=== PATIENT | male | born 1940 | race Caucasian/White ===

== ENCOUNTER 2018-02-27 11:36 | Emergency (ER) | payer MEDICARE, OTHER, SELFPAY ==
[2018-02-27] VITALS (8 sets, daily range): BP systolic 134–158; BP diastolic 70–83; PULSE 65–79; RESP 11–17; TEMP 36.4; O2SAT 92–100; BMI 23.0
--- NOTE | 2018-02-27 11:46 | DI.RAD.S_ITS ---
PROCEDURE: XR KNEE LT 1TO2V INDICATIONS: fall knee pain swelling TECHNIQUE: 2 views of the knee were acquired. COMPARISON: [facility], CR, XR TIBIA FIBULA LT 2V, 02/27/2018, 11:31. [facility], CR, XR FEMUR 2VW LT, 01/15/2017, 13:54. FINDINGS: Bones: There is a minimally displaced proximal tibial fracture. In addition, there is a very minimal angulated appearance of the proximal tibia seen on lateral view with areas of cortical irregularity and lucency noted along the metaphyseal/diaphyseal junction. In addition, there is an ill-defined area of lucency along the tibial spine and lateral tibial plateau. No suspicious bony lesions. Partially visualized distal femoral fixation tanvir is present. Hardware appears intact. Soft tissues: Moderate joint effusion. No suspicious soft tissue calcifications. IMPRESSION: 1. Minimally displaced proximal fibular fracture. 2. Ill-defined areas of nondisplaced lucency within the proximal tibia as above including the lateral tibial plateau and spine likely accounts receivable representative of intra-articular fractures. CT is recommended for additional evaluation. Dictated by: Gina Stockton M.D. on 02/27/2018 at 12:24 Approved by: Gina Stockton M.D. on 02/27/2018 at 12:28
--- NOTE | 2018-02-27 11:46 | DI.RAD.S_ITS ---
PROCEDURE: XR TIBIA FIBULA RT 2V INDICATIONS: fall pain TECHNIQUE: 2 views of the tibia and fibula were acquired. COMPARISON: [facility], CR, XR KNEE LT 1TO2V, 02/27/2018, 11:31. [facility], CR, XR FEMUR 2VW LT, 01/15/2017, 13:54. FINDINGS: Bones: Partially visualized proximal fibular fracture as well is lucency with within the proximal tibia. Soft tissues: No suspicious soft tissue calcifications or masses. IMPRESSION: Partially visualized proximal fibular and tibial fractures as above. Please see knee x-ray report of 02/27/18 for further details. Dictated by: Gina Stockton M.D. on 02/27/2018 at 12:31 Approved by: Gina Stockton M.D. on 02/27/2018 at 12:31
--- NOTE | 2018-02-27 11:46 | DI.RAD.S_ITS ---
PROCEDURE: XR PELVIS 1-2V INDICATIONS: fall left leg pain TECHNIQUE: 1 view(s) of the pelvis acquired. COMPARISON: [facility], TREVOR, XR FEMUR 2VW LT, 01/15/2017, 13:54. [facility], RTEVOR, XR PELVIS W LATERAL HIP LT, 01/15/2017, 13:54. FINDINGS: Bones: Right hip arthroplasty is present. Partially visualized left femoral fixation rods are noted. There no visualized osseous or hardware fractures. Soft tissues: Visualized bowel gas pattern is normal. No suspicious soft tissue calcifications. IMPRESSION: Right hip arthroplasty and left femoral fixation. No visualized acute fracture or dislocation. However, if clinical concern and/or pain persist, short interval imaging followup in 7-10 days is recommended, as occult injury cannot be definitively excluded. Dictated by: Gina Stockton M.D. on 02/27/2018 at 12:28 Approved by: Gina Stockton M.D. on 02/27/2018 at 12:30
--- NOTE | 2018-02-27 11:47 | DI.RAD.S_ITS ---
PROCEDURE: XR CHEST 1V INDICATIONS: fall backwards TECHNIQUE: One view of the chest was acquired. COMPARISON: [facility], , CHEST 1 VIEW, 07/08/2015, 13:27. FINDINGS: Surgical changes and devices: Pacemaker and sternal wires are noted. Lungs and pleura: No pleural effusions or pneumothorax. Lungs are clear. Mediastinum: Heart size is normal. Aorta is calcified and ectatic. Bones and chest wall: No suspicious bony lesions. Overlying soft tissues appear unremarkable. IMPRESSION: No acute pulmonary process. Dictated by: Gina Stockton M.D. on 02/27/2018 at 12:22 Approved by: Gina Stockton M.D. on 02/27/2018 at 12:23
--- NOTE | 2018-02-27 12:00 | ED.LOWEXIN ---
HPI - Extremity Injury (Lower) General Chief Complaint: Extremity Injury, Lower Stated Complaint: Left leg injury Time Seen by Provider: 02/27/18 11:45 Source: patient and EMS Mode of arrival: EMS Limitations: no limitations History of Present Illness HPI Narrative: Patient is a 77-year-old male who presents with left leg injury. He fell backwards all 1-2 feet in a and landed on his left side. There was no head injury or loss consciousness. EMS in the field thought that his left lower leg with angulated and so it was attempted to reduce in the field. He does have significant left knee swelling. He denies any back pain or hip pain. He is on Coumadin for his heart. MD complaint: leg injury Related Data Home Medications Medication Instructions Recorded Confirmed allopurinol 300 mg PO DAILY 02/27/18 02/27/18 aspirin [Aspirin Low Dose] 81 mg PO DAILY 02/27/18 02/27/18 buspirone 15 mg PO BID 02/27/18 02/27/18 carvedilol 6.25 mg PO BID 02/27/18 02/27/18 fluoxetine 40 mg PO DAILY 02/27/18 02/27/18 furosemide 20 mg PO DAILY 02/27/18 02/27/18 omeprazole 20 mg PO DAILY 02/27/18 02/27/18 tamsulosin 0.4 mg PO DAILY 02/27/18 02/27/18 tizanidine 2 mg PO DAILY 02/27/18 02/27/18 trazodone 50 mg PO BEDTIME 02/27/18 02/27/18 warfarin 2.5 mg PO DAILY 02/27/18 02/27/18 Allergies Allergy/AdvReac Type Severity Reaction Status Date / Time No Known Drug Allergies Allergy Verified 02/27/18 14:10 Review of Systems Review of Systems All systems reviewed & are unremarkable except as noted in HPI and below Constitutional Denies chills, Denies fever(s), Denies lethargy and Denies weakness Cardiovascular Denies chest pain, Denies irregular heart rhythm, Denies lightheadedness, Denies palpitations, Denies dyspnea, Denies dyspnea on exertion and Denies orthopnea Respiratory Denies cough, Denies dyspnea, Denies dyspnea on exertion and Denies wheezing Gastrointestinal Gastrointestinal: Denies abdominal pain, Denies change in bowel habits, Denies diarrhea, Denies nausea and Denies vomiting Musculoskeletal Reports as per HPI Integumentary/Breasts Denies pruritus, Denies erythema, Denies rash and Denies wounds Neurologic Denies weakness Endocrine Denies palpitations Allergic/Immunologic Denies wheezing PFSH Medical History Atrial fibrillation (Acute) CHF (congestive heart failure) (Acute) Coronary artery disease (Acute) Surgical History H/O aortic valve replacement (Acute) S/P ICD (internal cardiac defibrillator) procedure (Acute) Status post cholecystectomy (Acute) Social History Smoking Status: Former smoker Exam Initial Vital Signs Initial Vital Signs: Vital Signs Temperature 97.6 F 02/27/18 11:46 Pulse Rate 79 02/27/18 11:46 Respiratory Rate 15 02/27/18 11:46 Blood Pressure 158/75 H 02/27/18 11:46 Pulse Oximetry 96 02/27/18 11:46 GENERAL: Alert well-appearing elderly male in no acute distress alert and oriented times HEENT: Head atraumatic,EOMI, pupils reactive, face symmetric Neck: No vertebral tenderness no step-offs full range of motion CARDIOVASCULAR: Regular rate and rhythm without murmurs, rubs or gallops. RESPIRATORY: Breath sounds equal bilaterally, no wheezes rales or rhonchi. ABDOMEN: Soft, nontender. Normoactive bowel sounds all 4 quadrants. No guarding or rebound. BACK: No tenderness no step-offs EXTREMITIES: Normal range of motion, no clubbing or edema. Neurovascularly intact -left knee swelling noted no obvious angulation distal pedal pulse is strong. He is able to move his toes. Pelvis is stable NEUROLOGICAL: Alert and oriented x4.Normal gait and speech. Cranial nerves II through XII grossly intact. Financial Investment Manager strength equal bilaterally SKIN: Warm, dry, no laceration, no petechiae, no rashes or lesions. Course Orders Ordered: ED Orders 02/27/18 11:46 XR knee LT 1to2V Stat XR pelvis 1-2V Stat XR tibia fibula LT 2V Stat 02/27/18 11:47 XR chest 1V Stat 02/27/18 12:15 Basic Metabolic Panel Stat Complete Blood Count AUTO DIFF Stat Prothrombin Time INR Stat 02/27/18 14:31 CT LE LT wo con Stat 02/27/18 16:27 EKG-12 Lead Stat 02/27/18 16:30 CT head/brain wo con Stat Discontinued Medications Hydromorphone HCl (Dilaudid) 0.5 mg IV NOW ONE Stop: 02/27/18 12:38 Last Admin: 02/27/18 12:45 Dose: 0.5 mg Hydromorphone HCl (Dilaudid) 0.5 mg IV NOW ONE Stop: 02/27/18 13:06 Last Admin: 02/27/18 13:06 Dose: 0.5 mg Hydromorphone HCl (Dilaudid) 0.5 mg IV NOW ONE Stop: 02/27/18 13:46 Last Admin: 02/27/18 13:53 Dose: 0.5 mg Hydromorphone HCl (Dilaudid) 0.5 mg IV NOW ONE Stop: 02/27/18 15:02 Last Admin: 02/27/18 15:02 Dose: 0.5 mg Ketamine HCl (Ketalar) 10 mg IV NOW ONE Stop: 02/27/18 17:37 Last Admin: 02/27/18 18:00 Dose: 10 mg Ketamine HCl (Ketalar) 15 mg IV NOW ONE Stop: 02/27/18 18:35 Lorazepam (Ativan) 0.5 mg IV NOW ONE Stop: 02/27/18 13:46 Last Admin: 02/27/18 13:52 Dose: 0.5 mg Morphine Sulfate (Morphine) 2 mg IV NOW ONE Stop: 02/27/18 16:10 Last Admin: 02/27/18 16:11 Dose: 2 mg Vital Signs - 8 hr 02/27/18 11:46 02/27/18 12:48 02/27/18 13:04 Temperature 97.6 F Pulse Rate 79 65 Respiratory Rate 15 16 Blood Pressure 158/75 H Blood Pressure [Left Arm] 147/79 H Pulse Oximetry 96 97 02/27/18 13:32 02/27/18 14:35 02/27/18 15:36 Temperature Pulse Rate 70 70 74 Respiratory Rate 11 L Blood Pressure Blood Pressure [Left Arm] 146/83 H 135/70 134/77 Pulse Oximetry 92 94 96 02/27/18 16:06 02/27/18 18:15 Temperature Pulse Rate 70 76 Respiratory Rate 17 Blood Pressure Blood Pressure [Left Arm] 148/80 H 141/73 H Pulse Oximetry 100 97 MDM - Extremity Injury (Lower) Lab Data Attestation: I reviewed the patient's lab results. Result diagrams: 02/27/18 12:15 02/27/18 12:15 Lab Results 02/27/18 02/27/18 02/27/18 Range/Units 12:15 12:15 12:15 WBC 6.4 (4.5-11.0) X10^3/uL RBC 4.90 (4.5-5.9) X10^6/uL Hgb 15.2 (13.5-17.5) g/dL Hct 45.9 (41-53) % MCV 93.6 (80-100) fL MCH 31.0 (26-34) PG MCHC 33.1 (30-36) % RDW 17.1 H (11.6-14.8) % Plt Count 100 L (150-400) X10^3/uL Neut % (Auto) 80.5 H (50-75) % Lymph % (Auto) 11.3 L (25-40) % [place] % (Auto) 5.8 (3-14) % Eos % (Auto) 1.8 L (2-4) % Baso % (Auto) 0.6 (0-2) % Neut # (Auto) 5100 (6883-7678) /uL PT 35.1 H (10.1-12.7) SECONDS INR 3.2 H (0.9-1.3) Sodium 143 (137-145) mmol/L Potassium 4.5 (3.4-5.1) mmol/L Chloride 106 (98-107) mmol/L Carbon Dioxide 31 (22-32) mmol/L BUN 41 H (9-20) mg/dL Creatinine 1.80 H (0.66-1.25) mg/dL Estimated GFR 37.0 L (>60) mL/min BUN/Creatinine Ratio 22.8 H (6-22) Glucose 107 (80-110) mg/dL Calcium 8.9 (8.4-10.2) mg/dL Imaging Data pelvis: Radiologist's impression: PROCEDURE: XR PELVIS 1-2V INDICATIONS: fall left leg pain TECHNIQUE: 1 view(s) of the pelvis acquired. COMPARISON: [facility], CR, XR FEMUR 2VW LT, 01/15/2017, 13:54. [facility], CR, XR PELVIS W LATERAL HIP LT, 01/15/2017, 13:54. FINDINGS: Bones: Right hip arthroplasty is present. Partially visualized left femoral fixation rods are noted. There no visualized osseous or hardware fractures. Soft tissues: Visualized bowel gas pattern is normal. No suspicious soft tissue calcifications. IMPRESSION: Right hip arthroplasty and left femoral fixation. No visualized acute fracture or dislocation. However, if clinical concern and/or pain persist, short interval imaging followup in 7-10 days is recommended, as occult injury cannot be definitively excluded. Dictated by: Gina Stockton M.D. on 02/27/2018 at 12:28 Left knee XR: Radiologist's impression: PROCEDURE: XR KNEE LT 1TO2V INDICATIONS: fall knee pain swelling TECHNIQUE: 2 views of the knee were acquired. COMPARISON: [facility], CR, XR TIBIA FIBULA LT 2V, 02/27/2018, 11:31. [facility], CR, XR FEMUR 2VW LT, 01/15/2017, 13:54. FINDINGS: Bones: There is a minimally displaced proximal tibial fracture. In addition, there is a very minimal angulated appearance of the proximal tibia seen on lateral view with areas of cortical irregularity and lucency noted along the metaphyseal/diaphyseal junction. In addition, there is an ill-defined area of lucency along the tibial spine and lateral tibial plateau. No suspicious bony lesions. Partially visualized distal femoral fixation tanvir is present. Hardware appears intact. Soft tissues: Moderate joint effusion. No suspicious soft tissue calcifications. IMPRESSION: 1. Minimally displaced proximal fibular fracture. 2. Ill-defined areas of nondisplaced lucency within the proximal tibia as above including the lateral tibial plateau and spine likely customer account representative of intra-articular fractures. CT is recommended for additional evaluation. Dictated by: Gina Stockton M.D. on 02/27/2018 at 12:24 left tib fib: Radiologist's impression: PROCEDURE: XR TIBIA FIBULA RT 2V INDICATIONS: fall pain TECHNIQUE: 2 views of the tibia and fibula were acquired. COMPARISON: [facility], CR, XR KNEE LT 1TO2V, 02/27/2018, 11:31. [facility], CR, XR FEMUR 2VW LT, 01/15/2017, 13:54. FINDINGS: Bones: Partially visualized proximal fibular fracture as well is lucency with within the proximal tibia. Soft tissues: No suspicious soft tissue calcifications or masses. IMPRESSION: Partially visualized proximal fibular and tibial fractures as above. Please see knee x-ray report of 02/27/18 for further details. Dictated by: Gina Stockton M.D. on 02/27/2018 at 12:31 CT LE left: Radiologist's impression: PROCEDURE: CT LE LT W CON INDICATIONS: tib/fib fracture TECHNIQUE: Noncontrast 1-1.5 mm axial sections acquired from the mid-patella to the proximal tibia, with coronal and sagittal reformats. COMPARISON: None. FINDINGS: Image quality: Excellent. Bones: Bones are severely osteopenic. Fractures of the lateral and medial tibial plateaus are noted. The lateral tibial plateau fracture fragment is nondepressed, but displaced approximately 9 mm laterally. The medial tibial plateau fracture is nondisplaced and nondepressed. Mildly displaced fracture of the medial femoral condyle. Mildly impacted fracture of the proximal fibula. Postsurgical changes compatible with dynamic compression screw and intramedullary tanvir placement for intertrochanteric/subtrochanteric proximal left femur fracture noted. Orthopedic hardware is intact. No lucencies are identified the bone hardware interface. Soft tissues: Soft tissue swelling noted adjacent to the left knee. Left knee joint fluid is noted concerning for post traumatic hemarthrosis. Scattered, dense atherosclerotic calcifications noted in the left lower extremity arteries. Scattered diverticuli noted in the visualized colon without evidence of diverticulitis. . IMPRESSION: 1. Proximal tibial fracture involving the lateral and medial plateaus (Schatzker V). 2. Mildly displaced fracture of the medial femoral condyle. 3. Status post ORIF of intratrochanteric/subtrochanteric proximal left femur fracture. Dictated by: Rosa Middleton MD, PhD on 02/27/2018 at 14:47 CT scan - head: Radiologist's impression: PROCEDURE: CT HEAD/BRAIN WO CON INDICATIONS: fall on coumadin TECHNIQUE: Noncontrast 4.5 mm thick angled axial sections acquired from the foramen magnum to the vertex, with coronal and sagittal reformats. For radiation dose reduction, the following was used: automated exposure control, adjustment of mA and/or kV according to patient size. COMPARISON: [facility], CT, HEAD WITHOUT CONTRAST, 07/08/2015, 14:20. FINDINGS: Image quality: Excellent. CSF spaces: Basal cisterns are patent. No extra-axial fluid collections. The ventricles are symmetric in size and shape. Brain: No intracranial bleeds or masses. There is dpwsxuke-qh-zgnore cerebral volume loss for age, with resultant ventricular and sulcal prominence. 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 There are moderate periventricular and deep white matter chronic small vessel ischemic changes. There is intracranial internal carotid artery atherosclerosis. Skull and face: Left parietal scalp contusion. Calvarium and visualized facial bones appear intact, without suspicious lesions. Sinuses: Visualized mastoids are clear. Mild maxillary sinus mucosal thickening bilaterally. There is a mucous retention cyst or polyp in the right maxillary sinus. IMPRESSION: 1. No acute intracranial abnormalities. No intracranial bleed. 2. Cerebral volume loss and chronic microvascular ischemic changes. 3. Left parietal scalp contusion. 4. Chronic maxillary sinus disease. Dictated by: Yuly Patel M.D. on 02/27/2018 at 17:02 ECG Data Attestation: I personally reviewed and interpreted this ECG as follows: Prior ECG tracings: available for review Interpretation: Paced rhythm rate 69 no priors to compare no ST changes or T-wave inversions MDM Narrative Medical decision making narrative: Dr. Alfaro [facility] has been updated on patient's symptoms and has reviewed imaging. Recommend that patient be transferred to [facility] for further evaluation. No head injury on no signs of focal or neurologic deficit. At this time no need for head CT. He is on Coumadin Dr. Murillo at heart review has been updated patient's symptoms test results. Does request a head CT. He happily accepts patient. Patient's pain is difficult to Alana to control with Dilaudid. He is given a dose of ketamine which actually seems to help a little bit more. Discharge Plan Departure Patient Disposition: [facility] Clinical Impression: Closed left tibial fracture Prescriptions: No Action fluoxetine 40 mg Capsule 40 mg PO DAILY RF: 0 carvedilol 6.25 mg Tablet 6.25 mg PO BID RF: 0 tizanidine 2 mg Tablet 2 mg PO DAILY RF: 0 warfarin 2.5 mg Tablet 2.5 mg PO DAILY RF: 0 aspirin [Aspirin Low Dose] 81 mg Tablet,Delayed Release (Dr/Ec) 81 mg PO DAILY RF: 0 tamsulosin 0.4 mg Capsule 0.4 mg PO DAILY RF: 0 allopurinol 300 mg Tablet 300 mg PO DAILY RF: 0 furosemide 20 mg Tablet 20 mg PO DAILY RF: 0 buspirone 15 mg Tablet 15 mg PO BID RF: 0 omeprazole 20 mg Tablet,Delayed Release (Dr/Ec) 20 mg PO DAILY RF: 0 trazodone 50 mg Tablet 50 mg PO BEDTIME RF: 0
[2018-02-27 12:36] LABS: Add Manual Diff / Slide Review NO; Basophils Percent Auto 0.6 % (0-2); Eosinophils Percent Auto 1.8 % (2-4); Hematocrit 45.9 % (41-53); Hemoglobin 15.2 g/dL (13.5-17.5); Lymphocytes Percent Auto 11.3 % (25-40); Mean Corpuscular HGB Conc 33.1 % (30-36); Mean Corpuscular Volume 93.6 fL (80-100); Monocytes Percent Auto 5.8 % (3-14); Neutrophils Absolute Auto 5100 /uL (3000-5900); Neutrophils Percent Auto 80.5 % (50-75); Platelet Count 100 X10^3/uL (150-400); Red Cell Distribution Width 17.1 % (11.6-14.8); White Blood Cell Count 6.4 X10^3/uL (4.5-11.0)
[2018-02-27 12:43] LABS: INR 3.2 (0.9-1.3); Prothrombin Time 35.1 SECONDS (10.1-12.7)
[2018-02-27] MEDS: HYDROMORPHONE 1 MG INJ 0.5 MG IV ×4 (12:45→15:02)
[2018-02-27 12:50] LABS: BUN Creatinine Ratio 22.8 (6-22); Blood Urea Nitrogen 41 mg/dL (9-20); Calcium 8.9 mg/dL (8.4-10.2); Carbon Dioxide 31 mmol/L (22-32); Chloride 106 mmol/L (98-107); Glucose 107 mg/dL (80-110); HEMOLYSIS < 15 (0-50); Potassium 4.5 mmol/L (3.4-5.1); Sodium 143 mmol/L (137-145)
[2018-02-27] MEDS: LORazepam 2 MG/ML SYRINGE 0.5 MG IV (13:52)
--- NOTE | 2018-02-27 14:31 | DI.CT.S_ITS ---
PROCEDURE: CT LE LT W CON INDICATIONS: tib/fib fracture TECHNIQUE: Noncontrast 1-1.5 mm axial sections acquired from the mid-patella to the proximal tibia, with coronal and sagittal reformats. COMPARISON: None. FINDINGS: Image quality: Excellent. Bones: Bones are severely osteopenic. Fractures of the lateral and medial tibial plateaus are noted. The lateral tibial plateau fracture fragment is nondepressed, but displaced approximately 9 mm laterally. The medial tibial plateau fracture is nondisplaced and nondepressed. Mildly displaced fracture of the medial femoral condyle. Mildly impacted fracture of the proximal fibula. Postsurgical changes compatible with dynamic compression screw and intramedullary tanvir placement for intertrochanteric/subtrochanteric proximal left femur fracture noted. Orthopedic hardware is intact. No lucencies are identified the bone hardware interface. Soft tissues: Soft tissue swelling noted adjacent to the left knee. Left knee joint fluid is noted concerning for post traumatic hemarthrosis. Scattered, dense atherosclerotic calcifications noted in the left lower extremity arteries. Scattered diverticuli noted in the visualized colon without evidence of diverticulitis. . IMPRESSION: 1. Proximal tibial fracture involving the lateral and medial plateaus (Schatzker V). 2. Mildly displaced fracture of the medial femoral condyle. 3. Status post ORIF of intratrochanteric/subtrochanteric proximal left femur fracture. Dictated by: Rosa Middleton MD, PhD on 02/27/2018 at 14:47 Approved by: Rosa Middleton MD, PhD on 02/27/2018 at 14:55
[2018-02-27] MEDS: MORPHINE 2 MG/ML INJ IV (16:11)
--- NOTE | 2018-02-27 16:30 | DI.CT.S_ITS ---
PROCEDURE: CT HEAD/BRAIN WO CON INDICATIONS: fall on coumadin TECHNIQUE: Noncontrast 4.5 mm thick angled axial sections acquired from the foramen magnum to the vertex, with coronal and sagittal reformats. For radiation dose reduction, the following was used: automated exposure control, adjustment of mA and/or kV according to patient size. COMPARISON: [facility], CT, HEAD WITHOUT CONTRAST, 07/08/2015, 14:20. FINDINGS: Image quality: Excellent. CSF spaces: Basal cisterns are patent. No extra-axial fluid collections. The ventricles are symmetric in size and shape. Brain: No intracranial bleeds or masses. There is crpqvcrm-[id number]-gvxwhk cerebral volume loss for age, with resultant ventricular and sulcal prominence. 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 There are moderate periventricular and deep white matter chronic small vessel ischemic changes. There is intracranial internal carotid artery atherosclerosis. Skull and face: Left parietal scalp contusion. Calvarium and visualized facial bones appear intact, without suspicious lesions. Sinuses: Visualized mastoids are clear. Mild maxillary sinus mucosal thickening bilaterally. There is a mucous retention cyst or polyp in the right maxillary sinus. IMPRESSION: 1. No acute intracranial abnormalities. No intracranial bleed. 2. Cerebral volume loss and chronic microvascular ischemic changes. 3. Left parietal scalp contusion. 4. Chronic maxillary sinus disease. Dictated by: Yuly Patel M.D. on 02/27/2018 at 17:02 Approved by: Yuly Patel M.D. on 02/27/2018 at 17:04
--- NOTE | 2018-02-27 16:51 | PC.NURSE ---
patient c/o 10/10 pain in his right lower leg. rechecked right leg and splint. CMS intact distally. Dr. Jarquin notified of pain.
[2018-02-27] MEDS: KETAMINE 500 MG/5 ML INJ 10 MG IV (18:00)
[2018-02-27] MEDS: KETAMINE 500 MG/5 ML INJ 15 MG IV (18:39)
== END 2018-02-27 18:58 | disposition short-term general hospital (02) ==
PROVIDERS: Emergency Provider Emergency Medicine; Family Provider Family Medicine; PCP Family Medicine
DX: S82.202A Unspecified fracture of shaft of left tibia, initial encounter for closed fracture (principal); W17.89XA Other fall from one level to another, initial encounter; Z79.01 Long term (current) use of anticoagulants
CPT/HCPCS: 36415; 70450; 71045; 72170; 73560; 73590; 73700; 80048; 85025; 85610; 93005; 99283; 99285; J1170; J2060; J2270

== ENCOUNTER → 2018-07-24 11:24 | Outpatient (CLI) | payer MEDICARE, OTHER, SELFPAY ==
--- NOTE | 2018-07-24 | DI.CT.S_ITS ---
PROCEDURE: CT ABDOMEN PELVIS WO/W CON INDICATIONS: GROSS HEMATURIA TECHNIQUE: Optional 5 mm thick noncontrast images acquired from the diaphragm to the symphysis pubis. After the administration of intravenous contrast, 5 mm thick images acquired from the diaphragm to the symphysis pubis after a 10-minute delay. 2 mm thick coronal and sagittal reformats were then performed of the kidneys and ureters. For radiation dose reduction, the following was used: automated exposure control, adjustment of mA and/or kV according to patient size. COMPARISON: [facility], CT, ABDOMEN/PELVIS WITH CONTRAST, 07/28/2014, 15:09. [facility], CT, ABDOMEN/PELVIS W&WO CONTRAST, 08/10/2014, 9:58. FINDINGS: Image quality: Excellent. Lung bases: Lung bases are clear. Heart size is mildly enlarged. Urinary system: Both kidneys are normal in size, without hydronephrosis or nephrolithiasis on pre-contrast images. Multiple renal cortical cysts are again seen. No urothelial mass or evidence of renal cortical carcinoma is found. No perinephric fat stranding. There is normal bilateral renal enhancement. Renal calyces appear normal in morphology when filled with contrast. Opacified portions of both ureters demonstrate normal caliber. Bladder wall thickness is normal. No calcified bladder stones. Other solid organs: Liver is normal in size and enhancement. Gallbladder appears previously resected. Biliary system is non dilated. Pancreas enhances normally. Spleen is normal in size and enhancement. No adrenal nodules. Peritoneum and bowel: Bowel loops demonstrate normal wall thickness and caliber. No free fluid or air. Mild chronic cardiomegaly again noted. Nodes and vessels: No retroperitoneal or mesenteric adenopathy by size criteria. Aorta and inferior vena cava are normal in size. Abdominal wall: No ventral hernias. Pelvis: No pathologic free pelvic fluid. No inguinal hernias or adenopathy. The morphology of the prostate gland suggests prior TURP procedure. Bones: No suspicious bony lesions. No vertebral body compression fractures. IMPRESSION: No renal cortical mass or urothelial mass is seen. The bladder is well-visualized and shows no identifiable evidence of polypoid or sessile mass. The source of hematuria has not been identified. Dictated by: Jayden Swift M.D. on 07/24/2018 at 15:25 Approved by: Jayden Swift M.D. on 07/24/2018 at 15:28
[2018-07-24 12:11] LABS: BUN Creatinine Ratio 25.3 (6-22); Blood Urea Nitrogen 38 mg/dL (9-20); Estimated Glomerular Filt Rate 45.6 mL/min (>60)
== END ==
PROVIDERS: Family Provider Family Medicine; PCP Family Medicine; Visit Provider Urology
DX: R31.0 Gross hematuria (principal)
CPT/HCPCS: 36415; 74178; 82565; 84520; Q9967

== ENCOUNTER → 2018-10-09 14:08 | Outpatient (CLI) | payer MEDICARE, OTHER, SELFPAY ==
--- NOTE | 2018-10-09 | DI.RAD.S_ITS ---
PROCEDURE: XR ABDOMEN MIN 2V INDICATIONS: CONSTIPATION DUE TO PAIN MEDS TECHNIQUE: 2 views of the abdomen were acquired. COMPARISON: [facility], , ABDOMEN 2 VIEW, 08/02/2014, 17:11. FINDINGS: Surgical changes and devices: Partially visualized cardiac CT, sternotomy wires, right hip arthroplasty and screw fixation of the proximal left femur. Right upper quadrant surgical clips. Bowel: No pneumoperitoneum. The bowel gas pattern is nonobstructive. There is moderate stool. Soft tissues: No masses; visualized solid organ contours appear normal in size. No suspicious abdominal calcifications. Bones: No suspicious bony abnormalities. Multilevel thoracic and lumbar spondylosis and facet arthropathy. IMPRESSION: Moderate stool. No specific evidence of bowel obstruction seen at this time although if the patient's symptoms do not improve, continued surveillance with abdominal series radiographs could be performed. Dictated by: Piero Evans M.D. on 10/09/2018 at 16:47 Approved by: Piero Evans M.D. on 10/09/2018 at 16:48
== END ==
PROVIDERS: Family Provider Family Medicine; PCP Family Medicine; Visit Provider Family Medicine
DX: K59.03 Drug induced constipation (principal)
CPT/HCPCS: 74019

== ENCOUNTER → 2018-11-19 14:41 | Outpatient (CLI) | payer MEDICARE, OTHER, SELFPAY ==
--- NOTE | 2018-11-19 | DI.CT.S_ITS ---
PROCEDURE: CT LUMBAR SPINE W CON INDICATIONS: CHRONIC LOW BACK PAIN RIGHT INGUINAL PAIN TECHNIQUE: After the administration of intravenous Isovue contrast, 3 mm thick sections acquired through the levels of interest. Sagittal and coronal reformats were then constructed. For radiation dose reduction, the following was used: automated exposure control. COMPARISON: [facility], CT, L-SPINE WITHOUT CONTRAST, 05/21/2011, 12:02. [facility], CT, CT ABDOMEN PELVIS WO/W CON, 07/24/2018, 12:14. FINDINGS: Image quality: Excellent. Bones: This patient has transitional lumbar anatomy. For the purposes of this examination, the numbering scheme from the prior lumbar CT dated 05/21/11 is utilized. By this numbering scheme, there are small ribs at the L1 level. The S1 level is transitional and partially lumbarized on the left. There is a relatively well developed disc space at the S1-S2 level. No acute fractures or dislocations are seen. Suspicious Mild levoconvex scoliotic curvature is noted. Minimal retrolisthesis can be seen at L2-L3, L3-L4, L4-L5, and L5-S1. There is partial bony bridging of the vertebral bodies at L1-L2. Moderate to severe disc space narrowing is seen at L2-L3, L4-L5, and L5-S1. There is moderate to severe lateral neural foraminal narrowing seen at L2-L3, L4-L5, and L5-S1. There is moderate to severe central canal narrowing at L3-L4, L4-L5, and L5-S1, with moderate central canal narrowing at L2-L3. There is partial visualization of right hip arthroplasty hardware. Soft tissues: Atherosclerotic changes are seen, including calcification of the aorta and branches. No aneurysm is seen. Pelvic clips are seen. There is partial visualization of a simple appearing, nonenhancing water density right renal cyst inferiorly that measures at least 4 cm. At the superior pole the left kidney, there is a water density cyst seen that measures 3.2 cm. Smaller cysts are seen elsewhere. No retroperitoneal masses can be seen. No enlarged lymph nodes are seen. Diverticulosis is seen, without findings of active diverticulitis. IMPRESSION: Multiple levels of degenerative change are seen, which are overall progressed compared to 2010. 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 Incidental note is made of: Bilateral renal cysts Diverticulosis is seen, without findings of active diverticulitis. Right hip arthroplasty hardware. Dictated by: Huan Perdomo M.D. on 11/20/2018 at 9:07 Approved by: Huan Perdomo M.D. on 11/20/2018 at 9:17
--- NOTE | 2018-11-19 | DI.RAD.S_ITS ---
PROCEDURE: XR HIP W PEL IF DONE LT MIN 4V INDICATIONS: CHRONIC LOW BACK PAIN RIGHT INGUINAL PAIN TECHNIQUE: AP pelvis with lateral view(s) of the bilateral hip(s). COMPARISON: [facility], TREVOR, XR ABDOMEN MIN 2V, 10/09/2018, 14:16. [facility], TREVOR, [id number] W PEL IF PERFORMED, 07/08/2015, 13:27. FINDINGS: Bones: No acute fractures or dislocations, or and a prior right total hip arthroplasty has been performed. This appears intact, and has a long femoral medullary component. A medullary tanvir on the left is present with a dynamic hip screw traversing a previously present intertrochanteric hip fracture in this device also appears stable and normal over time. Transverse fixation screws are seen distally at the intercondylar region and also at the distal metadiaphyseal junction where the medullary tanvir is fixed by 2 transverse screws.. Pelvic ring appears intact. No suspicious bony lesions. Soft tissues: The visualized bowel gas pattern is normal. No suspicious soft tissue calcifications. IMPRESSION: Expected post traumatic appearance on the left, prior right total hip arthroplasty, both devices have been previously present and appear stable over time. Source of new pain is not found. Dictated by: Jayden Swift M.D. on 11/19/2018 at 16:23 Approved by: Jayden Swift M.D. on 11/19/2018 at 16:25
--- NOTE | 2018-11-19 | DI.US.S_ITS ---
PROCEDURE: US ABDOMEN LIMITED INDICATIONS: RIGHT INGUINAL PAIN TECHNIQUE: Real-time focused scanning was performed of the inguinal region, with image documentation. COMPARISON: None. FINDINGS: No right inguinal hernia or other right groin abnormalities. IMPRESSION: No right lung abnormality Dictated by: Kevan RIGGINS Interpreted: Gina Stockton MD on 11/19/2018 at 15:52 Approved by: Gina Stockton M.D. on 11/19/2018 at 16:43
[2018-11-19 17:08] LABS: BUN Creatinine Ratio 26.3 (6-22); Blood Urea Nitrogen 42 mg/dL (9-20); Estimated Glomerular Filt Rate 42.2 mL/min (>60)
== END ==
PROVIDERS: Family Provider Family Medicine; PCP Family Medicine; Visit Provider Family Medicine
DX: M54.5 Low back pain (principal); M25.551 Pain in right hip; R10.30 Lower abdominal pain, unspecified; I70.0 Atherosclerosis of aorta; N28.1 Cyst of kidney, acquired; K57.90 Diverticulosis of intestine, part unspecified, without perforation or abscess without bleeding; M47.816 Spondylosis without myelopathy or radiculopathy, lumbar region; I10 Essential (primary) hypertension; G89.29 Other chronic pain; Z96.641 Presence of right artificial hip joint
CPT/HCPCS: 36415; 72132; 73522; 76705; 82565; 84520; Q9967

== ENCOUNTER 2019-08-20 11:30 | Outpatient (RCR) | payer MEDICARE, OTHER, SELFPAY | END 2019-08-26 15:22 | LOC: CAR 11:30 | PROVIDERS: Family Provider Family Medicine; PCP Family Medicine | DX: Z95.2 Presence of prosthetic heart valve (principal) | CPT/HCPCS: 93798 ==

== ENCOUNTER → 2019-08-28 15:39 | Outpatient (ROUT) | payer MEDICARE, OTHER, SELFPAY ==
[2019-08-28 15:52] LABS: INR 1.5 (0.9-1.3); Prothrombin Time 17.6 SECONDS (10.1-12.7)
== END ==
PROVIDERS: Family Provider Family Medicine; PCP Family Medicine; Visit Provider Internal Medicine
DX: Z79.899 Other long term (current) drug therapy (principal)
CPT/HCPCS: 85610

== ENCOUNTER → 2019-09-02 13:09 | Outpatient (ROUT) | payer MEDICARE, OTHER, SELFPAY ==
[2019-09-02 13:47] LABS: Influenza A - CEPHEID Flu A NEGATIVE (NEGATIVE); Influenza B - CEPHEID Flu B NEGATIVE (NEGATIVE)
[2019-09-02 17:56] LABS: Add Manual Diff / Slide Review NO; Basophils Absolute Auto 0 /uL (0-100); Basophils Percent Auto 0.7 % (0-2); Eosinophils Absolute Auto 100 /uL (0-450); Hematocrit 42.7 % (41-53); Hemoglobin 13.9 g/dL (13.5-17.5); Lymphocytes Absolute Auto 800 /uL (1100-4500); Lymphocytes Percent Auto 17.5 % (25-40); Mean Corpuscular HGB Conc 32.5 % (30-36); Mean Corpuscular Hemoglobin 31.3 PG (26-34); Mean Corpuscular Volume 96.3 fL (80-100); Monocytes Absolute Auto 400 /uL (0-900); Monocytes Percent Auto 7.9 % (3-14); Neutrophils Absolute Auto 3300 /uL (1500-7000); Neutrophils Percent Auto 70.9 % (50-75); Platelet Count 166 X10^3/uL (150-400); Red Blood Cell Count 4.43 X10^6/uL (4.5-5.9); Red Cell Distribution Width 16.6 % (11.6-14.8); White Blood Cell Count 4.6 X10^3/uL (4.5-11.0)
[2019-09-02 18:13] LABS: INR 1.6 (0.9-1.3)
[2019-09-02 18:19] LABS: BUN Creatinine Ratio 15.7 (6-22); Blood Urea Nitrogen 18 mg/dL (9-20); Calcium 9.1 mg/dL (8.4-10.2); Carbon Dioxide 29 mmol/L (22-32); Chloride 103 mmol/L (98-107); Estimated Glomerular Filt Rate > 60.0 mL/min (>60); Glucose 82 mg/dL (80-110); HEMOLYSIS < 15 (0-50); Potassium 4.4 mmol/L (3.4-5.1); Sodium 138 mmol/L (137-145)
[2019-09-13 07:07] LABS: COVID19 Sendout Not Detected (Not Detected)
== END ==
PROVIDERS: Family Provider Family Medicine; PCP Family Medicine; Visit Provider Internal Medicine
DX: J18.9 Pneumonia, unspecified organism (principal); R09.89 Other specified symptoms and signs involving the circulatory and respiratory systems
CPT/HCPCS: 80048; 85025; 85610; 87502

== ENCOUNTER → 2019-09-02 14:10 | Outpatient (CLI) | payer MEDICARE, OTHER, SELFPAY ==
--- NOTE | 2019-09-02 | DI.RAD.S_ITS ---
PROCEDURE: XR CHEST 2V INDICATIONS: J18.9 TECHNIQUE: 2 views of the chest were acquired. COMPARISON: [facility], , XR CHEST 1V, 02/27/2018, 11:31. FINDINGS: Surgical changes and devices: Patient is status post median sternotomy. Cardiac defibrillator is unchanged. Lungs and pleura: Lungs are clear. No pleural effusions or pneumothorax. Mediastinum: Mediastinal contours are normal. Heart size is enlarged, as before. Bones and chest wall: No suspicious bony abnormalities. Soft tissues appear unremarkable. IMPRESSION: No acute cardiopulmonary findings. Cardiomegaly. Dictated by: Ashley Vasquez M.D. on 09/02/2019 at 14:27 Approved by: Ashley Vasquez M.D. on 09/02/2019 at 14:28
== END ==
PROVIDERS: Family Provider Family Medicine; PCP Family Medicine; Referring Provider Family Medicine; Visit Provider Internal Medicine
DX: J18.9 Pneumonia, unspecified organism (principal); I51.7 Cardiomegaly; Z95.810 Presence of automatic (implantable) cardiac defibrillator
CPT/HCPCS: 71046; 80048; 85025; 85610; 87502; 87635

== ENCOUNTER → 2020-10-04 11:14 | Outpatient (CLI) | payer MEDICARE, OTHER, SELFPAY ==
[2020-10-04 12:20] LABS: INR 1.3 (0.9-1.3); Prothrombin Time 14.3 SECONDS (10.1-12.7)
[2020-10-04 12:22] LABS: Hematocrit 42.7 % (41-53); Hemoglobin 13.8 g/dL (13.5-17.5); Mean Corpuscular HGB Conc 32.4 % (30-36); Mean Corpuscular Hemoglobin 30.7 PG (26-34); Mean Corpuscular Volume 94.7 fL (80-100); Platelet Count 156 X10^3/uL (150-400); Red Blood Cell Count 4.51 X10^6/uL (4.5-5.9); Red Cell Distribution Width 16.4 % (11.6-14.8); White Blood Cell Count 6.9 X10^3/uL (4.5-11.0)
[2020-10-04 12:41] LABS: BUN Creatinine Ratio 22.9 (6-22); Blood Urea Nitrogen 33 mg/dL (9-20); Calcium 9.8 mg/dL (8.4-10.2); Carbon Dioxide 25 mmol/L (22-32); Chloride 103 mmol/L (98-107); Estimated Glomerular Filt Rate 47.6 mL/min (>60); Glucose 96 mg/dL (80-110); HEMOLYSIS < 15 (0-50); Potassium 3.9 mmol/L (3.4-5.1); Sodium 140 mmol/L (137-145)
== END ==
PROVIDERS: Family Provider Family Medicine; Referring Provider Physician Assistant; Visit Provider Physician Assistant
DX: I48.19 Other persistent atrial fibrillation (principal); I50.22 Chronic systolic (congestive) heart failure
CPT/HCPCS: 36415; 80048; 85027; 85610

== ENCOUNTER → 2020-10-12 11:46 | Outpatient (CLI) | payer MEDICARE, OTHER, SELFPAY ==
[2020-10-12 20:26] LABS: BUN Creatinine Ratio 21.7 (6-22); Blood Urea Nitrogen 31 mg/dL (9-20); Calcium 9.6 mg/dL (8.4-10.2); Carbon Dioxide 26 mmol/L (22-32); Chloride 103 mmol/L (98-107); Glucose 107 mg/dL (80-110); HEMOLYSIS < 15 (0-50); Potassium 4.6 mmol/L (3.4-5.1); Sodium 138 mmol/L (137-145)
== END ==
PROVIDERS: Family Provider Family Medicine; PCP Family Medicine; Visit Provider Family Medicine
DX: N17.9 Acute kidney failure, unspecified (principal)
CPT/HCPCS: 80048

== ENCOUNTER 2020-11-01 18:48 | Emergency (ER) | payer MEDICARE, OTHER, SELFPAY ==
[2020-11-01] VITALS (9 sets, daily range): BP systolic 160–196; BP diastolic 82–112; PULSE 69–74; RESP 18–26; TEMP 36.6; O2SAT 94–98
--- NOTE | 2020-11-01 18:54 | DI.RAD.S_ITS ---
PROCEDURE: XR CHEST 2V INDICATIONS: shortness of breath TECHNIQUE: 2 views of the chest were acquired. COMPARISON: [facility], CR, XR CHEST 2V, 09/02/2019, 14:10. FINDINGS: Surgical changes and devices: Midline sternotomy, percutaneous aortic valve, pacemaker Lungs and pleura: Lungs are clear. Question mild interstitial pulmonary edema. No pleural effusions or pneumothorax. Mediastinum: Mediastinal contours are normal. Unchanged mild cardiomegaly. Bones and chest wall: No suspicious bony abnormalities. Soft tissues appear unremarkable. IMPRESSION: Unchanged mild cardiomegaly. Question mild interstitial pulmonary edema. Dictated by: Mars Marroquin M.D. on 11/01/2020 at 19:51 Approved by: Mars Marroquin M.D. on 11/01/2020 at 19:52
[2020-11-01 19:30] LABS: Add Manual Diff / Slide Review NO; Basophils Absolute Auto 100 /uL (0-100); Basophils Percent Auto 0.5 % (0-2); Eosinophils Absolute Auto 100 /uL (0-450); Eosinophils Percent Auto 0.5 % (2-4); Hematocrit 43.1 % (41-53); Hemoglobin 14.2 g/dL (13.5-17.5); Lymphocytes Absolute Auto 900 /uL (1100-4500); Lymphocytes Percent Auto 8.2 % (25-40); Mean Corpuscular Volume 93.8 fL (80-100); Monocytes Absolute Auto 600 /uL (0-900); Monocytes Percent Auto 5.9 % (3-14); Neutrophils Absolute Auto 9300 /uL (1500-7000); Neutrophils Percent Auto 84.9 % (50-75); Platelet Count 113 X10^3/uL (150-400); Red Blood Cell Count 4.59 X10^6/uL (4.5-5.9); Red Cell Distribution Width 17.2 % (11.6-14.8)
[2020-11-01 19:43] LABS: Lactate (Lactic Acid) 1.2 mmol/L (0.7-2.1)
[2020-11-01 19:44] LABS: BUN Creatinine Ratio 21.2 (6-22); Blood Urea Nitrogen 28 mg/dL (9-20); Calcium 9.5 mg/dL (8.4-10.2); Carbon Dioxide 26 mmol/L (22-32); Chloride 106 mmol/L (98-107); Estimated Glomerular Filt Rate 52.5 mL/min (>60); Glucose 118 mg/dL (80-110); HEMOLYSIS < 15 (0-50); Potassium 4.6 mmol/L (3.4-5.1); Sodium 139 mmol/L (137-145)
[2020-11-01 19:46] LABS: Alanine Aminotransferase 19 IU/L (<50); Albumin 4.3 g/dL (3.5-5.0); Albumin Globulin Ratio 1.3 (1.0-2.8); Alkaline Phosphatase 124 U/L (38-126); Aspartate Aminotransferase 24 IU/L (17-59); BUN Creatinine Ratio 21.4 (6-22); Bilirubin Total 1.3 mg/dL (0.2-1.3); Blood Urea Nitrogen 28 mg/dL (9-20); Calcium 9.4 mg/dL (8.4-10.2); Carbon Dioxide 26 mmol/L (22-32); Chloride 105 mmol/L (98-107); Estimated Glomerular Filt Rate 52.9 mL/min (>60); Globulin 3.4 g/dL (1.7-4.1); Glucose 119 mg/dL (80-110); HEMOLYSIS < 15 (0-50); Potassium 4.6 mmol/L (3.4-5.1); Sodium 139 mmol/L (137-145); Total Protein 7.7 g/dL (6.3-8.2)
--- NOTE | 2020-11-01 23:36 | ED.GENADULT ---
HPI - General Adult General Chief complaint: Weakness Stated complaint: SOB Time Seen by Provider: 11/01/20 19:00 Source: patient Mode of arrival: Ambulatory Limitations: physical limitation History of Present Illness HPI narrative: 80-year-old gentleman who is 4 weeks post endovascular aortic valve replacement in [place] presents with fatigue, weakness, dizziness with breathing increasing dyspnea but no orthopnea and complaints of urinary frequency. Describes no chest pain or palpitations, no neurologic findings but quotes that ?he just does not feel right?. No abdominal pain, vomiting, diarrhea. Notes some mild dysuria over the last couple of days but no hematuria and no flank pain. Describes no fevers nor headaches. Related Data Home Medications Medication Instructions Recorded Confirmed allopurinol 300 mg PO DAILY 02/27/18 11/01/20 aspirin [Aspirin Low Dose] 81 mg PO DAILY 02/27/18 11/01/20 carvedilol 6.25 mg PO BID 02/27/18 11/01/20 fluoxetine 40 mg PO DAILY 02/27/18 11/01/20 furosemide 20 mg PO DAILY 02/27/18 11/01/20 omeprazole 20 mg PO DAILY 02/27/18 11/01/20 tamsulosin 0.4 mg PO DAILY 02/27/18 11/01/20 trazodone 50 mg PO BEDTIME 02/27/18 11/01/20 atorvastatin 20 mg tablet 20 mg PO BEDTIME 10/10/20 11/01/20 gabapentin 100 mg capsule 100 mg PO TID 10/10/20 11/01/20 warfarin 3 mg PO 10/11/20 11/01/20 Previous Rx's Medication Instructions Recorded cephalexin 500 mg PO TID #21 cap 11/01/20 Allergies Allergy/AdvReac Type Severity Reaction Status Date / Time methocarbamol Allergy Unknown dizzy, Verified 11/01/20 14:14 loss of balance Review of Systems Review of Systems Narrative: Remainder of complete review of systems is otherwise unremarkable except for that included in the HPI. Patient History Medical History Atrial fibrillation CHF (congestive heart failure) Coronary artery disease Surgical History (Updated 11/02/20 @ 04:08 by Korin Morales MD) H/O aortic valve replacement History of mitral valve repair S/P ICD (internal cardiac defibrillator) procedure Status post cholecystectomy Social History Smoking Status: Former smoker Smoking Status: Former smoker alcohol intake frequency: 0-2 drinks per day Substance Use Type: does not use Exam Narrative Exam Narrative: General: Pale and moderately ill-appearing but in no acute distress. Able to give a complete and coherent history. Well-nourished well-developed HEENT: Moist mucous membranes, normal sclera, blind in the right eye Neck: No JVD, supple Respiratory: Lungs are clear to auscultation, no wheezing no rales no rhonchi. Full and symmetrical air movement Cardiac: Regular rate and rhythm no murmurs no bruits Abdomen: Soft, nontender, good bowel tones, no flank pain Skin: Warm and dry, no rashes Neurologic: Grossly neurologically intact with no obvious asymmetries or abnormalities Extremities: No trauma, well perfused Psych: Cooperative, appropriate insight and affect Initial Vital Signs Initial Vital Signs: Vital Signs Temperature 97.8 F 11/01/20 18:50 Pulse Rate 74 11/01/20 18:50 Respiratory Rate 20 11/01/20 18:50 Blood Pressure 196/95 H 11/01/20 18:50 Pulse Oximetry 98 11/01/20 18:50 Course Orders Ordered: ED Orders 11/01/20 19:13 BMP [Basic Metabolic Panel] Stat Complete Blood Count AUTO DIFF Stat Comprehensive Metabolic Panel Stat Lactate (Lactic Acid) Stat NT-proBNP (BNP-Adult 18+) Stat Discontinued Medications Acetaminophen (Acetaminophen 325 Mg Tablet) 650 mg PO NOW ONE Stop: 11/01/20 23:35 Last Admin: 11/01/20 23:38 Dose: 650 mg Documented by: CORY Cephalexin HCl (Cephalexin 250 Mg Capsule) 500 mg PO NOW ONE Stop: 11/01/20 23:48 Last Admin: 11/01/20 23:53 Dose: 500 mg Documented by: CORY Furosemide (Furosemide 40 Mg/4 Ml Vial) 40 mg IV NOW ONE Stop: 11/01/20 23:48 Last Admin: 11/01/20 23:53 Dose: 40 mg Documented by: CORY Vital Signs Vital signs: Vital Signs - 8 hr 11/01/20 20:30 11/01/20 21:00 11/01/20 21:30 Pulse Rate 73 72 69 Respiratory Rate 26 H 24 Blood Pressure 172/94 H 172/112 H 173/99 H Pulse Oximetry 95 96 95 11/01/20 22:00 11/01/20 22:30 11/01/20 23:00 Pulse Rate 70 71 74 Respiratory Rate 22 23 20 Blood Pressure 171/83 H 160/85 H 168/82 H Pulse Oximetry 95 95 94 11/01/20 23:30 11/02/20 00:00 11/02/20 00:30 Pulse Rate 69 74 73 Respiratory Rate 18 24 22 Blood Pressure 171/85 H 166/90 H 180/87 H Pulse Oximetry 94 95 Medical Decision Making Medical Records Medical records reviewed: Yes I reviewed the patient's medical records. Lab Data Lab results reviewed: Yes I reviewed the patient's lab results. Result diagrams: 11/01/20 19:13 11/01/20 19:13 Labs: Lab Results 11/01/20 11/01/20 11/01/20 Range/Units 19:13 19:13 19:13 WBC 11.0 (4.5-11.0) X10^3/uL RBC 4.59 (4.5-5.9) X10^6/uL Hgb 14.2 (13.5-17.5) g/dL Hct 43.1 (41-53) % MCV 93.8 (80-100) fL MCH 31.0 (26-34) PG MCHC 33.0 (30-36) % RDW 17.2 H (11.6-14.8) % Plt Count 113 L (150-400) X10^3/uL Neut % (Auto) 84.9 H (50-75) % Lymph % (Auto) 8.2 L (25-40) % [place] % (Auto) 5.9 (3-14) % Eos % (Auto) 0.5 L (2-4) % Baso % (Auto) 0.5 (0-2) % Neut # (Auto) 9300 H (5063-7378) /uL Lymph # (Auto) 900 L (8965-0642) /uL [place] # (Auto) 600 (0-900) /uL Eos # (Auto) 100 (0-450) /uL Baso # (Auto) 100 (0-100) /uL Sodium 139 (137-145) mmol/L Potassium 4.6 (3.4-5.1) mmol/L Chloride 105 (98-107) mmol/L Carbon Dioxide 26 (22-32) mmol/L BUN 28 H (9-20) mg/dL Creatinine 1.31 H (0.66-1.25) mg/dL Estimated GFR 52.9 L (>60) mL/min BUN/Creatinine Ratio 21.4 (6-22) Glucose 119 H (80-110) mg/dL Lactate 1.2 (0.7-2.1) mmol/L Calcium 9.4 (8.4-10.2) mg/dL Total Bilirubin 1.3 (0.2-1.3) mg/dL AST 24 (17-59) IU/L ALT 19 (<50) IU/L Alkaline Phosphatase 124 (38-126) U/L NT-Pro-B Natriuret Pep (<450) pg/mL Total Protein 7.7 (6.3-8.2) g/dL Albumin 4.3 (3.5-5.0) g/dL Globulin 3.4 (1.7-4.1) g/dL Albumin/Globulin Ratio 1.3 (1.0-2.8) 11/01/20 11/01/20 Range/Units 19:13 19:13 WBC (4.5-11.0) X10^3/uL RBC (4.5-5.9) X10^6/uL Hgb (13.5-17.5) g/dL Hct (41-53) % MCV (80-100) fL MCH (26-34) PG MCHC (30-36) % RDW (11.6-14.8) % Plt Count (150-400) X10^3/uL Neut % (Auto) (50-75) % Lymph % (Auto) (25-40) % [place] % (Auto) (3-14) % Eos % (Auto) (2-4) % Baso % (Auto) (0-2) % Neut # (Auto) (4010-5856) /uL Lymph # (Auto) (7219-3576) /uL [place] # (Auto) (0-900) /uL Eos # (Auto) (0-450) /uL Baso # (Auto) (0-100) /uL Sodium 139 (137-145) mmol/L Potassium 4.6 (3.4-5.1) mmol/L Chloride 106 (98-107) mmol/L Carbon Dioxide 26 (22-32) mmol/L BUN 28 H (9-20) mg/dL Creatinine 1.32 H (0.66-1.25) mg/dL Estimated GFR 52.5 L (>60) mL/min BUN/Creatinine Ratio 21.2 (6-22) Glucose 118 H (80-110) mg/dL Lactate (0.7-2.1) mmol/L Calcium 9.5 (8.4-10.2) mg/dL Total Bilirubin (0.2-1.3) mg/dL AST (17-59) IU/L ALT (<50) IU/L Alkaline Phosphatase (38-126) U/L NT-Pro-B Natriuret Pep 2080 H (<450) pg/mL Total Protein (6.3-8.2) g/dL Albumin (3.5-5.0) g/dL Globulin (1.7-4.1) g/dL Albumin/Globulin Ratio (1.0-2.8) Imaging Data Chest x-ray: Radiologist's Impression: FINDINGS: Surgical changes and devices: Midline sternotomy, percutaneous aortic valve, pacemaker Lungs and pleura: Lungs are clear. Question mild interstitial pulmonary edema. No pleural effusions or pneumothorax. Mediastinum: Mediastinal contours are normal. Unchanged mild cardiomegaly. Bones and chest wall: No suspicious bony abnormalities. Soft tissues appear unremarkable. IMPRESSION: Unchanged mild cardiomegaly. Question mild interstitial pulmonary edema. Dictated by: Mars Marroquin M.D. on 11/01/2020 at 19:51 ECG Data Attestation: I personally reviewed and interpreted this ECG as follows: Interpretation: Ventricular paced Rate of 76 MDM Narrative Medical decision making narrative: 80-year-old gentleman post recent endovascular aortic valve repair. Presents complaining of mild exertional dyspnea and mild weakness. His notes that he did not take his usual Lasix today. No evidence of sepsis, acute coronary syndrome, aortic dissection, pericardial effusion, intra-abdominal abscess. He does appear to be in mild congestive heart failure. He is given a dose of Lasix in the emergency department. He also complains of dysuria and frequency. His UA is fairly benign however there is a small amount of leukocyte esterase and a small amount of nitrite. Given his symptoms will opt to treat this with Keflex. Acute urinary retention was considered but his postvoid residual was 106 cc only. He also complains of right eye pain, he is blind in his right eye has had recurrent episodes of pain resolved with yarsani massage on the right side. No obvious explanations for this are identified currently and this has been a chronic ongoing problem for him. Elevated INR at 4.4. Will ask him to hold Coumadin for 2 days and then restart with INR check approximately 3 days later. Discharge Plan Departure Patient Disposition: Home Clinical Impression: Elevated INR, Acute UTI CHF (congestive heart failure) Qualifiers: Heart failure type: unspecified Heart failure chronicity: acute on chronic Qualified Code(s): I50.9 - Heart failure, unspecified Instructions: DI for Urinary Tract Infection (UTI), DI for Heart Failure Exacerbations Activity Restrictions/Additional Instructions: Thank you for coming in today It does look like you may be developing a bladder infection. There is no indication of urinary retention. I have given you a 1st dose of Keflex. You will need to complete an additional 7 days. Your INR was elevated today at 4.4. Please hold Coumadin for 2 days. Restart on November 04 and you will need to have another Coumadin level checked around November 07 or . Your exertional dyspnea is likely from mild congestive heart failure. You do need to take your Lasix as prescribed. I have given you a dose of IV Lasix this evening. Please take your usual 20 mg starting tomorrow morning. If you find that you are worsening in any way, please feel free to return to the ER Prescriptions: New cephalexin 500 mg capsule 500 mg PO TID Qty: 21 RF: 0 No Action fluoxetine 40 mg Capsule 40 mg PO DAILY RF: 0 carvedilol 6.25 mg Tablet 6.25 mg PO BID RF: 0 aspirin [Aspirin Low Dose] 81 mg Tablet,Delayed Release (Dr/Ec) 81 mg PO DAILY RF: 0 tamsulosin 0.4 mg Capsule 0.4 mg PO DAILY RF: 0 allopurinol 300 mg Tablet 300 mg PO DAILY RF: 0 furosemide 20 mg Tablet 20 mg PO DAILY RF: 0 omeprazole 20 mg Tablet,Delayed Release (Dr/Ec) 20 mg PO DAILY RF: 0 trazodone 50 mg Tablet 50 mg PO BEDTIME RF: 0 warfarin 3 mg PO RF: 0 atorvastatin 20 mg tablet 20 mg PO BEDTIME RF: 0 gabapentin 100 mg capsule 100 mg PO TID RF: 0 Referrals: Kash Lopez MD [Primary Care Provider] -
[2020-11-01] MEDS: ACETAMINOPHEN 325 MG TABLET 650 MG PO (23:38)
[2020-11-01] MEDS: cephALEXin 250 MG CAPSULE 500 MG PO (23:53)
[2020-11-01] MEDS: FUROSEMIDE 40 MG/4 ML VIAL IV (23:53)
[2020-11-01 23:57] LABS: NT-proBNP (BNP-Adult 18+) 2080 pg/mL (<450)
[2020-11-02] VITALS: BP 166/90; PULSE 74; RESP 24; O2SAT 95
[2020-11-02 00:30] VITALS: BP 180/87; PULSE 73; RESP 22
== END 2020-11-02 00:49 | disposition home or self-care (01) ==
PROVIDERS: Emergency Provider Emergency Medicine; Family Provider Family Medicine; PCP Family Medicine
DX: N39.0 Urinary tract infection, site not specified (principal); I50.9 Heart failure, unspecified; R79.1 Abnormal coagulation profile; R35.0 Frequency of micturition; R30.0 Dysuria
CPT/HCPCS: 36415; 71046; 80048; 80053; 83605; 83880; 85025; 87077; 87086; 87186; 93005; 93010; 96374; 99284; J1940

== ENCOUNTER → 2021-01-17 10:31 | Outpatient (CLI) | payer MEDICARE, OTHER, SELFPAY ==
[2021-01-17 19:39] LABS: Add Manual Diff / Slide Review NO; Basophils Absolute Auto 0 /uL (0-100); Basophils Percent Auto 0.8 % (0-2); Eosinophils Absolute Auto 200 /uL (0-450); Eosinophils Percent Auto 2.9 % (2-4); Hematocrit 44.3 % (41-53); Hemoglobin 14.5 g/dL (13.5-17.5); Lymphocytes Absolute Auto 1300 /uL (1100-4500); Lymphocytes Percent Auto 23.8 % (25-40); Mean Corpuscular HGB Conc 32.8 % (30-36); Mean Corpuscular Hemoglobin 31.2 PG (26-34); Monocytes Absolute Auto 400 /uL (0-900); Monocytes Percent Auto 7.1 % (3-14); Neutrophils Absolute Auto 3500 /uL (1500-7000); Neutrophils Percent Auto 65.4 % (50-75); Platelet Count 123 X10^3/uL (150-400); Red Blood Cell Count 4.67 X10^6/uL (4.5-5.9); Red Cell Distribution Width 17.5 % (11.6-14.8); White Blood Cell Count 5.4 X10^3/uL (4.5-11.0)
[2021-01-17 19:46] LABS: Reticulocyte Count, Percent 1.6 % (0.87-2.60)
[2021-01-17 20:27] LABS: HEMOLYSIS < 15 (0-50); Iron 51 ug/dL (49-181)
[2021-01-17 20:42] LABS: Percent Iron Saturation 15 % (20-50); Total Iron Binding Capacity 342 ug/dL (261-462); Transferrin 253 mg/dL (206-381)
[2021-01-17 22:11] LABS: Alanine Aminotransferase 21 IU/L (<50); Albumin 3.9 g/dL (3.5-5.0); Albumin Globulin Ratio 1.2 (1.0-2.8); Alkaline Phosphatase 137 U/L (38-126); Aspartate Aminotransferase 28 IU/L (17-59); BUN Creatinine Ratio 23.6 (6-22); Bilirubin Total 0.8 mg/dL (0.2-1.3); Blood Urea Nitrogen 38 mg/dL (9-20); Calcium 9.7 mg/dL (8.4-10.2); Carbon Dioxide 26 mmol/L (22-32); Chloride 105 mmol/L (98-107); Estimated Glomerular Filt Rate 41.7 mL/min (>60); Globulin 3.2 g/dL (1.7-4.1); Glucose 111 mg/dL (80-110); HEMOLYSIS < 15 (0-50); Potassium 4.3 mmol/L (3.4-5.1); Sodium 139 mmol/L (137-145); Total Protein 7.1 g/dL (6.3-8.2)
[2021-01-17 22:47] LABS: Ferritin 73 ng/mL (18-464)
[2021-01-17 23:17] LABS: Folate 12.4 ng/mL (2.76-20.0); Vitamin B12 213 pg/mL (239-931)
== END ==
PROVIDERS: Family Medicine; Family Provider Family Medicine; PCP Family Medicine; Referring Provider Family Medicine; Visit Provider Family Medicine
DX: D64.9 Anemia, unspecified (principal); Z95.2 Presence of prosthetic heart valve; R53.83 Other fatigue; S72.002A Fracture of unspecified part of neck of left femur, initial encounter for closed fracture; R30.0 Dysuria
CPT/HCPCS: 80053; 82607; 82728; 82746; 83540; 83550; 84443; 85025; 85045

== ENCOUNTER → 2021-03-06 14:18 | Outpatient (CLI) | payer MEDICARE, OTHER, SELFPAY | PROVIDERS: Family Provider Family Medicine; PCP Family Medicine; Visit Provider Family Medicine | DX: G89.29 Other chronic pain (principal); M54.9 Dorsalgia, unspecified | CPT/HCPCS: 87077; 87086; 87186 ==

== ENCOUNTER → 2021-03-15 08:21 | Outpatient (CLI) | payer MEDICARE, OTHER, SELFPAY ==
[2021-03-15 21:22] LABS: COVID19 - ORCAS (NP or Nasal) Negative (Negative)
== END ==
PROVIDERS: Family Provider Family Medicine; PCP Family Medicine; Visit Provider Family Medicine
DX: Z20.822 Contact with and (suspected) exposure to COVID-19 (principal)
CPT/HCPCS: C9803; U0003

== ENCOUNTER → 2021-04-26 12:03 | Outpatient (CLI) | payer MEDICARE, OTHER, SELFPAY | PROVIDERS: Family Provider Family Medicine; PCP Family Medicine; Visit Provider Physician Assistant | DX: G89.29 Other chronic pain (principal); M54.9 Dorsalgia, unspecified | CPT/HCPCS: 87077; 87086; 87186 ==

== ENCOUNTER → 2021-06-02 12:56 | Outpatient (CLI) | payer MEDICARE, OTHER, SELFPAY ==
[2021-06-02 13:45] LABS: COVID19 -Nasal RAPID Negative (Negative)
== END ==
PROVIDERS: Family Provider Family Medicine; PCP Physician Assistant; Referring Provider Internal Medicine; Visit Provider Internal Medicine
DX: Z20.822 Contact with and (suspected) exposure to COVID-19 (principal)
CPT/HCPCS: 87635; C9803

== ENCOUNTER → 2021-06-02 13:02 | Outpatient (CLI) | payer MEDICARE, OTHER, SELFPAY ==
--- NOTE | 2021-06-07 09:54 | PM.PFT.1 ---
Pulmonary Function Test Referral & Results Date Patient Seen: 06/02/21 Requesting provider: Carson Polanco Indication: Shortness of breath Results: The spirometry demonstrates an FVC of 3.26 Lwhich is 73% of predicted. The FEV1 was measured at 2.22 L which is 69% of predicted. The FEV1/FVC ratio was 68 which is 94% of predicted. Following the administration of bronchodilator there was a 49% improvement in FEF 25-75% Lung volumes show an SVC of 3.43 L which is 72% of predicted. The diffusing capacity was measured at 17.29 which is 49% of predicted. No hemoglobin value was provided, so no correction for potential anemia could be made, if appropriate. The maximum voluntary ventilation was severely reduced Interpretation: This study demonstrates possible obstructive lung disease based on reduction FEV1 although FEV1/FVC ratio is preserved. There is minimal evidence of benefit following bronchodilator but small airway flow does seem improved as above based on improvement in FEF 25-75% There is a minimal reduction in lung volumes suggesting minimal restrictive lung disease is also present There is a moderate reduction diffusing capacity suggesting significant disease at the capillary alveolar level, unless patient is anemic
== END ==
PROVIDERS: Family Provider Family Medicine; PCP Physician Assistant; Referring Provider Internal Medicine Cardiovascular Disease; Visit Provider Internal Medicine Cardiovascular Disease
DX: R06.02 Shortness of breath (principal); Z20.822 Contact with and (suspected) exposure to COVID-19
CPT/HCPCS: 87635; 94060; 94726; 94729; C9803

== ENCOUNTER → 2021-06-20 08:28 | Outpatient (CLI) | payer MEDICARE, OTHER, SELFPAY ==
[2021-06-20 20:14] LABS: COVID19 - ORCAS (NP or Nasal) Negative (Negative)
[2021-06-21 12:38] LABS: Respiratory Syncytial Virus Detected (Not Detect)
== END ==
PROVIDERS: Physician Assistant; Family Provider Family Medicine; PCP Physician Assistant; Visit Provider Physician Assistant
DX: Z20.822 Contact with and (suspected) exposure to COVID-19 (principal); Z11.52 Encounter for screening for COVID-19; R05.8 Other specified cough
CPT/HCPCS: 87634; U0003

== ENCOUNTER 2021-06-22 14:27 | Emergency (ER) | payer MEDICARE, OTHER, SELFPAY ==
[2021-06-22 14:52] VITALS: BP 147/70; PULSE 72; RESP 18; TEMP 36.3; O2SAT 96; BMI 25.7
--- NOTE | 2021-06-22 15:01 | DI.RAD.S_ITS ---
PROCEDURE: XR CHEST 2V INDICATIONS: Short of breath - R/O COVID TECHNIQUE: 2 views of the chest were acquired. COMPARISON: [facility], CT, C-SPINE WITHOUT CONTRAST, 07/08/2015, 14:20. [facility], CR, XR CHEST 1V, 02/27/2018, 11:31. [facility], CR, XR CHEST 2V, 11/01/2020, 19:14. [facility], CR, XR CHEST 2V, 09/02/2019, 14:10. FINDINGS: Surgical changes and devices: Left pacemaker. TAVR stent. Lungs and pleura: Subtle density at the right medial apex is unchanged. Somewhat prominent pulmonary vasculature markings. No pleural effusions or pneumothorax. Mediastinum: Mediastinal contours are unchanged. Heart size is enlarged. Bones and chest wall: No suspicious bony abnormalities. Soft tissues appear unremarkable. IMPRESSION: No interval change appreciated. 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 Dictated by: Michael Beard M.D. on 06/22/2021 at 15:32 Approved by: Michael Beard M.D. on 06/22/2021 at 15:37
[2021-06-22 16:19] LABS: COVID19 -Nasal RAPID Negative (Negative)
--- NOTE | 2021-06-22 17:59 | ED_ITS ---
HPI - URI/Sore Throat General Chief Complaint: Upper Respiratory Symptoms Stated Complaint: Resp issues- sent over by [facility] for Xray Time Seen by Provider: 06/22/21 17:58 Source: patient and family Mode of arrival: Ambulatory Related Data Home Medications Medication Instructions Recorded Confirmed aspirin 81 mg tablet,delayed 81 mg PO DAILY 02/27/18 04/27/21 release (Aspirin Low Dose) carvedilol 6.25 mg tablet 6.25 mg PO BID 02/27/18 04/27/21 omeprazole 20 mg tablet,delayed 20 mg PO DAILY 02/27/18 04/27/21 release warfarin 5 mg tablet 5 mg PO DAILY 05/08/21 Previous Rx's Medication Instructions Recorded nitroglycerin 0.4 mg sublingual 0.4 mg SUBLINGUAL Q5M PRN #30 tab 12/27/20 tablet tamsulosin 0.4 mg capsule 0.4 mg PO DAILY #90 cap 02/01/21 buspirone 15 mg tablet 15 mg PO BID #60 tab 02/22/21 tramadol 50 mg tablet 50 mg PO Q6H PRN #120 tab 02/22/21 trazodone 50 mg tablet 50 mg PO BEDTIME PRN #90 tab 04/17/21 furosemide 20 mg tablet 20 - 40 mg PO DAILY PRN #180 tab 04/25/21 cephalexin 500 mg capsule 500 mg PO TID #21 cap 04/26/21 triamcinolone acetonide 0.1 % 1 applic TOPICAL DAILY #30 g 05/08/21 topical cream warfarin 3 mg tablet 3 mg PO DAILY #90 tab 05/08/21 fluoxetine 40 mg capsule 40 mg PO DAILY #30 cap 05/15/21 gabapentin 100 mg capsule 200 mg PO TID #90 cap 06/12/21 allopurinol 300 mg tablet 300 mg PO DAILY #90 tab 06/19/21 atorvastatin 20 mg tablet 20 mg PO BEDTIME #30 tab 06/19/21 losartan 25 mg tablet 12.5 mg PO DAILY #60 tab 06/21/21 Allergies Allergy/AdvReac Type Severity Reaction Status Date / Time methocarbamol Allergy Unknown dizzy, Verified 12/27/20 14:18 loss of balance Patient History Medical History (Updated 06/22/21 @ 18:00 by Ana Munoz [facility]) Atrial fibrillation CHF (congestive heart failure) Coronary artery disease Surgical History (Updated 11/02/20 @ 04:08 by Korin Morales MD) H/O aortic valve replacement History of mitral valve repair S/P ICD (internal cardiac defibrillator) procedure Status post cholecystectomy Social History Smoking Status: Former smoker Smoking Status: Former smoker alcohol intake frequency: 0-2 drinks per day Alcohol type: beer Substance Use Type: does not use Exam Initial Vital Signs Initial Vital Signs: Vital Signs Temperature 97.4 F L 06/22/21 14:52 Pulse Rate 72 06/22/21 14:52 Respiratory Rate 18 06/22/21 14:52 Blood Pressure 147/70 H 06/22/21 14:52 Pulse Oximetry 96 06/22/21 14:52 Course Orders Ordered: ED Orders 06/22/21 15:01 Chest [XR chest 2V] Stat 06/22/21 15:33 COVID19 -Nasal swab/Pre-Proc Stat Vital Signs Vital signs: Vital Signs - 8 hr 06/22/21 14:52 Temperature 97.4 F L Pulse Rate 72 Respiratory Rate 18 Blood Pressure 147/70 H Pulse Oximetry 96 MDM - URI/Sore Throat Lab Data Labs: Lab Results 06/22/21 Range/Units 15:33 SARS-CoV-2 (PCR) Negative (Negative) Imaging Data Chest x-ray: Radiologist's Impression: PROCEDURE:? XR CHEST 2V ? INDICATIONS:? Short of breath - R/O COVID ? TECHNIQUE:? 2 views of the chest were acquired.? ? COMPARISON:? [facility], CT, C-SPINE WITHOUT CONTRAST, 07/08/2015, 14:20.? [facility], CR, XR CHEST 1V, 02/27/2018, 11:31.? [facility], CR, XR CHEST 2V, 11/01/2020, 19:14.? [facility], CR, XR CHEST 2V, 09/02/2019, 14:10. ? FINDINGS:? ? Surgical changes and devices:? Left pacemaker.? TAVR stent. ? Lungs and pleura:? Subtle density at the right medial apex is unchanged.? Somewhat prominent pulmonary vasculature markings.? No pleural effusions or pneumothorax.? ? Mediastinum:? Mediastinal contours are unchanged.? Heart size is enlarged.? ? Bones and chest wall:? No suspicious bony abnormalities.? Soft tissues appear unremarkable.? ? IMPRESSION:? No interval change appreciated. ? 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 ? ? Dictated by: Michael Beard M.D. on 06/22/2021 at 15:32 ? ? Approved by: Michael Beard M.D. on 06/22/2021 at 15:37 ? Discharge Plan Departure Patient Disposition: Home Clinical Impression: Encounter for screening for COVID-19 Prescriptions: No Action tramadol 50 mg tablet 50 mg PO Q6H PRN (Reason: pain) Qty: 120 1RF Rx Instructions: max 4 per day buspirone 15 mg tablet 15 mg PO BID Qty: 60 5RF furosemide 20 mg tablet 20 - 40 mg PO DAILY PRN (Reason: chronic congestive heart failure) Qty: 180 1RF cephalexin 500 mg capsule 500 mg PO TID Qty: 21 0RF warfarin 5 mg tablet 5 mg PO DAILY 0RF Rx Instructions: 3 mg x5 days and 6mg x2 days or as adjusted by provider warfarin 3 mg tablet 3 mg PO DAILY Qty: 90 0RF Rx Instructions: 3 mg 5 days and 6 x2 days, or adjusted by provider triamcinolone acetonide 0.1 % cream 1 applic topical DAILY Qty: 30 2RF fluoxetine 40 mg capsule 40 mg PO DAILY Qty: 30 3RF gabapentin 100 mg capsule 200 mg PO TID Qty: 90 3RF atorvastatin 20 mg tablet 20 mg PO BEDTIME Qty: 30 2RF allopurinol 300 mg tablet 300 mg PO DAILY Qty: 90 1RF losartan 25 mg tablet 12.5 mg PO DAILY Qty: 60 1RF carvedilol 6.25 mg Tablet 6.25 mg PO BID 0RF aspirin [Aspirin Low Dose] 81 mg Tablet,Delayed Release (Dr/Ec) 81 mg PO DAILY 0RF omeprazole 20 mg Tablet,Delayed Release (Dr/Ec) 20 mg PO DAILY 0RF tamsulosin 0.4 mg capsule 0.4 mg PO DAILY Qty: 90 1RF trazodone 50 mg tablet 50 mg PO BEDTIME PRN (Reason: insomnia) Qty: 90 0RF nitroglycerin 0.4 mg tablet, sublingual 0.4 mg sublingual Q5M PRN (Reason: chest pain) Qty: 30 1RF Rx Instructions: do not exceed 3 doses per episode Referrals: Laila Kamara PA-C [Primary Care Provider] -
--- NOTE | 2021-06-23 06:57 | ED.URI ---
HPI - URI/Sore Throat General Chief Complaint: Upper Respiratory Symptoms Stated Complaint: Resp issues- sent over by [facility] for Xray Time Seen by Provider: 06/22/21 17:58 Source: patient and family Mode of arrival: Ambulatory History of Present Illness HPI Narrative: The patient wanted COVID testing. He left without being seen by a provider. Related Data Home Medications Medication Instructions Recorded Confirmed aspirin 81 mg tablet,delayed 81 mg PO DAILY 02/27/18 04/27/21 release (Aspirin Low Dose) carvedilol 6.25 mg tablet 6.25 mg PO BID 02/27/18 04/27/21 omeprazole 20 mg tablet,delayed 20 mg PO DAILY 02/27/18 04/27/21 release warfarin 5 mg tablet 5 mg PO DAILY 05/08/21 Previous Rx's Medication Instructions Recorded nitroglycerin 0.4 mg sublingual 0.4 mg SUBLINGUAL Q5M PRN #30 tab 12/27/20 tablet tamsulosin 0.4 mg capsule 0.4 mg PO DAILY #90 cap 02/01/21 buspirone 15 mg tablet 15 mg PO BID #60 tab 02/22/21 tramadol 50 mg tablet 50 mg PO Q6H PRN #120 tab 02/22/21 trazodone 50 mg tablet 50 mg PO BEDTIME PRN #90 tab 04/17/21 furosemide 20 mg tablet 20 - 40 mg PO DAILY PRN #180 tab 04/25/21 cephalexin 500 mg capsule 500 mg PO TID #21 cap 04/26/21 triamcinolone acetonide 0.1 % 1 applic TOPICAL DAILY #30 g 05/08/21 topical cream warfarin 3 mg tablet 3 mg PO DAILY #90 tab 05/08/21 fluoxetine 40 mg capsule 40 mg PO DAILY #30 cap 05/15/21 gabapentin 100 mg capsule 200 mg PO TID #90 cap 06/12/21 allopurinol 300 mg tablet 300 mg PO DAILY #90 tab 06/19/21 atorvastatin 20 mg tablet 20 mg PO BEDTIME #30 tab 06/19/21 losartan 25 mg tablet 12.5 mg PO DAILY #60 tab 06/21/21 Allergies Allergy/AdvReac Type Severity Reaction Status Date / Time methocarbamol Allergy Unknown dizzy, Verified 12/27/20 14:18 loss of balance Patient History Medical History (Updated 06/22/21 @ 18:00 by RICARDO Parry) Atrial fibrillation CHF (congestive heart failure) Coronary artery disease Surgical History (Updated 11/02/20 @ 04:08 by Korin Morales MD) H/O aortic valve replacement History of mitral valve repair S/P ICD (internal cardiac defibrillator) procedure Status post cholecystectomy Social History Smoking Status: Former smoker Smoking Status: Former smoker alcohol intake frequency: 0-2 drinks per day Alcohol type: beer Substance Use Type: does not use Exam Initial Vital Signs Initial Vital Signs: Vital Signs Temperature 97.4 F L 06/22/21 14:52 Pulse Rate 72 06/22/21 14:52 Respiratory Rate 18 06/22/21 14:52 Blood Pressure 147/70 H 06/22/21 14:52 Pulse Oximetry 96 06/22/21 14:52 MDM - URI/Sore Throat Lab Data Labs: Lab Results 06/22/21 Range/Units 15:33 SARS-CoV-2 (PCR) Negative (Negative) Discharge Plan Departure Patient Disposition: Home Clinical Impression: Encounter for screening for COVID-19 Prescriptions: No Action tramadol 50 mg tablet 50 mg PO Q6H PRN (Reason: pain) Qty: 120 1RF Rx Instructions: max 4 per day buspirone 15 mg tablet 15 mg PO BID Qty: 60 5RF furosemide 20 mg tablet 20 - 40 mg PO DAILY PRN (Reason: chronic congestive heart failure) Qty: 180 1RF cephalexin 500 mg capsule 500 mg PO TID Qty: 21 0RF warfarin 5 mg tablet 5 mg PO DAILY 0RF Rx Instructions: 3 mg x5 days and 6mg x2 days or as adjusted by provider warfarin 3 mg tablet 3 mg PO DAILY Qty: 90 0RF Rx Instructions: 3 mg 5 days and 6 x2 days, or adjusted by provider triamcinolone acetonide 0.1 % cream 1 applic topical DAILY Qty: 30 2RF fluoxetine 40 mg capsule 40 mg PO DAILY Qty: 30 3RF gabapentin 100 mg capsule 200 mg PO TID Qty: 90 3RF atorvastatin 20 mg tablet 20 mg PO BEDTIME Qty: 30 2RF allopurinol 300 mg tablet 300 mg PO DAILY Qty: 90 1RF losartan 25 mg tablet 12.5 mg PO DAILY Qty: 60 1RF carvedilol 6.25 mg Tablet 6.25 mg PO BID 0RF aspirin [Aspirin Low Dose] 81 mg Tablet,Delayed Release (Dr/Ec) 81 mg PO DAILY 0RF omeprazole 20 mg Tablet,Delayed Release (Dr/Ec) 20 mg PO DAILY 0RF tamsulosin 0.4 mg capsule 0.4 mg PO DAILY Qty: 90 1RF trazodone 50 mg tablet 50 mg PO BEDTIME PRN (Reason: insomnia) Qty: 90 0RF nitroglycerin 0.4 mg tablet, sublingual 0.4 mg sublingual Q5M PRN (Reason: chest pain) Qty: 30 1RF Rx Instructions: do not exceed 3 doses per episode Referrals: Laila Kamara PA-C [Primary Care Provider] -
== END 2021-06-22 18:08 | disposition home or self-care (01) ==
PROVIDERS: Emergency Provider Emergency Medicine; Family Provider Family Medicine; PCP Physician Assistant
DX: Z20.822 Contact with and (suspected) exposure to COVID-19 (principal)
CPT/HCPCS: 71046; 87635; 99281; C9803

== ENCOUNTER → 2021-07-10 08:51 | Outpatient (CLI) | payer MEDICARE, OTHER, SELFPAY ==
[2021-07-10 19:07] LABS: COVID19 - ORCAS (NP or Nasal) Negative (Negative)
== END ==
PROVIDERS: Family Provider Family Medicine; PCP Physician Assistant; Referring Provider Physician Assistant Medical; Visit Provider Physician Assistant Medical
DX: U07.1 COVID-19 (principal)
CPT/HCPCS: U0003

== ENCOUNTER → 2021-07-13 12:37 | Outpatient (CLI) | payer MEDICARE, OTHER, SELFPAY ==
[2021-07-13 13:55] LABS: Add Manual Diff / Slide Review NO; Basophils Absolute Auto 0 /uL (0-100); Basophils Percent Auto 0.3 % (0-2); Eosinophils Absolute Auto 200 /uL (0-450); Eosinophils Percent Auto 3.2 % (2-4); Hematocrit 43.3 % (41-53); Lymphocytes Absolute Auto 1700 /uL (1100-4500); Lymphocytes Percent Auto 24.9 % (25-40); Mean Corpuscular HGB Conc 32.3 % (30-36); Mean Corpuscular Hemoglobin 30.9 PG (26-34); Mean Corpuscular Volume 95.5 fL (80-100); Monocytes Absolute Auto 500 /uL (0-900); Monocytes Percent Auto 6.8 % (3-14); Neutrophils Absolute Auto 4400 /uL (1500-7000); Neutrophils Percent Auto 64.8 % (50-75); Platelet Count 156 X10^3/uL (150-400); Red Blood Cell Count 4.53 X10^6/uL (4.5-5.9); Red Cell Distribution Width 15.9 % (11.6-14.8); White Blood Cell Count 6.9 X10^3/uL (4.5-11.0)
[2021-07-13 14:27] LABS: Alanine Aminotransferase 53 IU/L (<50); Albumin 3.7 g/dL (3.5-5.0); Albumin Globulin Ratio 1.3 (1.0-2.8); Alkaline Phosphatase 99 U/L (38-126); Aspartate Aminotransferase 45 IU/L (17-59); BUN Creatinine Ratio 19.2 (6-22); Bilirubin Total 0.7 mg/dL (0.2-1.3); Blood Urea Nitrogen 30 mg/dL (9-20); Calcium 8.7 mg/dL (8.4-10.2); Carbon Dioxide 28 mmol/L (22-32); Chloride 106 mmol/L (98-107); Estimated Glomerular Filt Rate 43.3 mL/min (>60); Globulin 2.9 g/dL (1.7-4.1); Glucose 88 mg/dL (80-110); HEMOLYSIS < 15 (0-50); Potassium 4.2 mmol/L (3.4-5.1); Sodium 138 mmol/L (137-145); Total Protein 6.6 g/dL (6.3-8.2)
== END ==
PROVIDERS: Family Provider Family Medicine; PCP Physician Assistant Medical; Referring Provider Urology; Visit Provider Urology
DX: S72.002A Fracture of unspecified part of neck of left femur, initial encounter for closed fracture (principal); N39.0 Urinary tract infection, site not specified; R31.0 Gross hematuria; I50.9 Heart failure, unspecified; D64.9 Anemia, unspecified; R09.82 Postnasal drip; R06.00 Dyspnea, unspecified; Z79.01 Long term (current) use of anticoagulants; Z90.6 Acquired absence of other parts of urinary tract; Z85.51 Personal history of malignant neoplasm of bladder
CPT/HCPCS: 36415; 80053; 81002; 85025; 99215

== ENCOUNTER → 2021-07-26 10:49 | Outpatient (CLI) | payer MEDICARE, OTHER, SELFPAY ==
--- NOTE | 2021-07-26 12:03 | DI.CT.S_ITS ---
PROCEDURE: CT ABDOMEN PELVIS WO/W CON INDICATIONS: Recurring urinary tract infections/history of bladder cancer TECHNIQUE: Optional 5 mm thick noncontrast images acquired from the diaphragm to the symphysis pubis. After the administration of intravenous contrast, 5 mm thick images acquired from the diaphragm to the symphysis pubis after a 10-minute delay. 2 mm thick coronal and sagittal reformats were then performed of the kidneys and ureters. For radiation dose reduction, the following was used: automated exposure control, adjustment of mA and/or kV according to patient size. COMPARISON: [facility], CT, CT ABDOMEN PELVIS WO/W CON, 07/24/2018, 12:14. FINDINGS: Image quality: Excellent. Lung bases: A large heart with postsurgical changes and pacemaker leads present. Trace bibasilar fibrotic changes. Urinary system: Kidneys are symmetric in size and both kidneys enhance uniformly. Numerous cortical cysts are present bilaterally. There are few exophytic cysts arising from each kidney, the largest arising from right lower pole measuring 6.1 cm, and the next largest in the left upper pole measuring 3.1 cm. No hydronephrosis or collecting system calcifications. There is moderate bilateral and nonspecific perinephric inflammation. Both ureters are normal in course and caliber without calcification. Urinary bladder demonstrates a normal wall thickness. There is an ovoid hyperdense mass along the anterior urinary bladder abutting the anterior abdominal wall measuring 1.6 cm, present previously and likely scarring. Other solid organs: Liver is normal in size and enhancement. Gallbladder is surgically absent . Biliary system is non dilated. Pancreas enhances normally. Spleen is normal in size and enhancement. No adrenal nodules. Peritoneum and bowel: Moderate descending and sigmoid colon diverticulosis without acute diverticulitis. Stomach and small bowel loops are normal. No free fluid or free air. Nodes and vessels: No retroperitoneal or mesenteric adenopathy by size criteria. Aorta and inferior vena cava are normal in size. Moderate abdominal aortic atherosclerotic calcification. Abdominal wall: No ventral hernias. Pelvis: No pathologic free pelvic fluid. No inguinal hernias or adenopathy. Surgical clips in the right external iliac chain region. Prostate gland is diminutive. No suspicious pelvic masses. Bones: Right hip arthroplasty. Left hip pinning hardware. Chronic lucency and corticated fracture plane involving posterior aspect of the left femoral head. Diffuse demineralization of all osseous structures. Sacralization of right L5 transverse process. No new bone lesion or compression fracture. IMPRESSION: 1. Numerous stable bilateral renal cysts. No obstructive uropathy. 2. No change to small hyperdense mass, likely a scar, between the anterior urinary bladder and abdominal wall. 3. No new findings of metastatic disease in the abdomen or pelvis. Dictated by: Jaye Greenwood M.D. on 07/26/2021 at 15:26 Approved by: Jaye Greenwood M.D. on 07/26/2021 at 15:40
== END ==
PROVIDERS: Family Provider Family Medicine; PCP Physician Assistant Medical; Referring Provider Urology; Visit Provider Urology
DX: N39.0 Urinary tract infection, site not specified (principal); N28.1 Cyst of kidney, acquired; N28.9 Disorder of kidney and ureter, unspecified; K57.30 Diverticulosis of large intestine without perforation or abscess without bleeding; Z85.51 Personal history of malignant neoplasm of bladder; Z95.0 Presence of cardiac pacemaker
CPT/HCPCS: 51798; 52000; 74178; 81002; Q9967